=== PATIENT | male | born 2000 | race Asian ===

== ENCOUNTER 2022-08-19 15:35 | Inpatient (IN) ==
[2022-08-19] MEDS ORDERED: SODIUM CHLORIDE 0.9% 1000ML 1,000 ML IV ONE (16:04)
[2022-08-19 16:30] LABS: Albumin Globulin Ratio 1.8 (0.9-2); BUN Creatinine Ratio 10.8 (10-20); Bilirubin,Total 1.7 mg/dl (0.2-1.0); Calcium 9.3 mg/dl (8.6-10.3); Creatinine Clr Calc Pharmacy 154.6 ml/min; Est GFR (African American) 133.6 ml/min; Est GFR (Non-African American) 115.3 ml/min; Globulin 2.8 gm/dl (2.5-4.0); Potassium 3.5 mmol/L (3.5-5.1); Total Protein 7.8 gm/dl (6.0-8.3)
[2022-08-19] MEDS ORDERED: PHARMACY GLYCEMIC MGMT CONSULT PRN (16:43)
[2022-08-19] MEDS ORDERED: STAT IV Infusion **Titration per Protocol STA (16:43)
[2022-08-19] MEDS ORDERED: INSULIN REGULAR 250 UNITS in SODIUM CHLORIDE 0.9% 247.5 ML IV SCH (16:45)
[2022-08-19 16:50] LABS: Appearance Urine Clear (Clear); Bacteria Urine Automated Negative (Negative); Bilirubin Urine Negative (Negative); Blood Urine Negative (Negative); Color Urine Yellow; Glucose Urine UA 3+ (Negative); Ketones Urine 4+ (Negative); Leukocyte Esterase Urine Negative (Negative); Nitrite Urine Negative (Negative); Protein Urine 2+ (Negative); RBC Urine Automated 0-4 /hpf (0-4); Urobilinogen Urine Negative (Negative); pH Urine 5.5 (4.5-7.5)
[2022-08-19 16:53] LABS: Basophils # (auto) 0.04 K/uL (0-0.2); Basophils % (auto) 0.6 %; Eosinophils # (auto) 0.02 K/uL (0-0.50); Eosinophils % (auto) 0.3 %; Hematocrit (blood only) 48.5 % (42.0-52.0); Hemoglobin 17.5 g/dl (14.0-18.0); Immature Granulocytes # (auto) 0.03 K/uL (0.01-0.20); Immature Granulocytes % (auto) 0.5 %; Lymphocytes # (auto) 1.64 K/uL (1.2-3.4); Lymphocytes % (auto) 24.8 %; Mean Corpuscular Hemoglobin 30.1 pg (25.0-34.0); Mean Corpuscular Hgb Conc 36.1 g/dL (32.0-36.0); Mean Corpuscular Volume 83.5 fL (80.0-100.0); Mean Platelet Volume 12.1 fL (9.4-12.4); Monocytes # (auto) 0.58 K/uL (0.11-0.59); Monocytes % (auto) 8.8 %; Neutrophils # (auto) 4.31 K/uL (1.40-6.50); Platelet Count 221 K/uL (130-400); RDW Standard Deviation 35.9 fL (36.4-46.3); Red Blood Count 5.81 M/uL (4.70-6.10); White Blood Count 6.62 K/ul (4.8-10.8)
[2022-08-19] MEDS ORDERED: NSS + 20MEQ KCL 20 MEQ/1,000 ML BAG IV SCH (17:00)
[2022-08-19] MEDS ORDERED: POTASSIUM CHLORIDE 40 MEQ in SODIUM CHLORIDE 0.9% 1000ML 1,000 ML IV SCH (17:00)
[2022-08-19] MEDS ORDERED: LACTATED RINGER'S 1,000 ML IV ONE (17:04)
[2022-08-19] MEDS ORDERED: POTASSIUM CHLORIDE CRTAB 20 MEQ TABCR PO STA ×2 (17:13→22:54)
[2022-08-19 17:45] LABS: BUN Creatinine Ratio 10.6 (10-20); Calcium 8.5 mg/dl (8.6-10.3); Creatinine Clr Calc Pharmacy 169.2 ml/min; Est GFR (African American) 142.3 ml/min; Est GFR (Non-African American) 122.8 ml/min; Magnesium 1.8 mg/dl (1.7-2.4); Phosphorus 2.9 mg/dl (2.5-4.9); Potassium 3.5 mmol/L (3.5-5.1)
--- NOTE | 2022-08-19 18:42 | Emergency Department Note ---
History of Present Illness General Chief complaint: Hyperglycemia Stated complaint: REF BY DOC,BLOOD SUGAR TO HIGH Time Seen by Provider: 08/19/22 15:59 History of Present Illness Provider complaint: Hyperglycemia polyuria Onset (ago): week(s) 1 22-year-old male who is diabetic and supposed to be on insulin presents to the emergency department for high blood sugar and polyuria. Patient reports his symptoms have gone for last week. 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 Patient reports no abdominal pain. No nausea or vomiting. No headaches. Home Medications Medication Instructions Recorded Confirmed Type No Known Home Medications 08/19/22 08/19/22 History Allergies Allergy/AdvReac Type Severity Reaction Status Date / Time jacqueline Allergy Intermediate Rash and Unverified 08/19/22 17:50 itching jacqueline flavor Allergy Intermediate Rash and Unverified 08/19/22 17:50 itching Past Med/Surg History Medical History Diabetes No pertinent family history Surgical History No pertinent past surgical history Social History Smoking Status: Never smoker Preferred Language: Malay Feels Safe at Home: Yes Physical Exam Vital Signs Vital Signs - 24 hr 08/19/22 15:38 08/19/22 16:14 08/19/22 15:55 Temperature 36.5 C Temperature Source Temporal Artery Scan Pulse Rate 103 H 89 Pulse Rate [Right Apical] 88 Pulse Rate from SpO2 Sensor 91 H Respiratory Rate 18 16 13 Respiratory Effort / Characteristics Non-Labored Non-Labored Spontaneous Respiratory Depth Normal Normal Respiratory Pattern Regular Blood Pressure 161/103 H Blood Pressure [Left Arm] 124/80 Blood Pressure Mean 122 Blood Pressure Mean [Left Arm] 94 Pulse Oximetry 97 98 97 Oxygen Delivery Method Room Air Room Air Sepsis Recent Fever Within 48 Hours No Sepsis New/Unexplained Change in Mental Status No Sepsis Action Taken by Nursing No Action Required 08/19/22 18:08 Temperature Temperature Source Pulse Rate 87 Pulse Rate [Right Apical] Pulse Rate from SpO2 Sensor Respiratory Rate 19 Respiratory Effort / Characteristics Respiratory Depth Respiratory Pattern Blood Pressure 115/70 Blood Pressure [Left Arm] Blood Pressure Mean 85 Blood Pressure Mean [Left Arm] Pulse Oximetry 100 Oxygen Delivery Method Room Air Sepsis Recent Fever Within 48 Hours Sepsis New/Unexplained Change in Mental Status Sepsis Action Taken by Nursing Physical Exam GENERAL: She is oriented to person, place, and time. She appears well-developed and well-nourished. She does not appear distressed. HENT: Exam performed. -Head: Normocephalic and atraumatic. -Right Ear: External ear normal. No mastoid erythema -Left Ear: External ear normal. No mastoid erythema -Mouth/Throat: The oropharynx is clear and moist. No trismus in the jaw. No dental abscesses or uvula swelling. No oropharyngeal exudate or tonsillar abscesses. EYES: Conjunctivae and EOM are normal.Right eye exhibits no discharge. Left eye exhibits no discharge. No scleral icterus. NECK: Normal range of motion. Neck supple. No JVD present. No tracheal deviation and normal range of motion present. CV: Normal rate, regular rhythm, normal heart sounds and intact distal pulses. There is no peripheral edema. Palpable radial pulses bue. PULM/CHEST: Effort normal and breath sounds normal. No respiratory distress. No stridor. She has no wheezes. She has no rales. -Chest Wall: She exhibits no tenderness. ABD: The abdomen is soft. Bowel sounds are normal. She has no distension. No mass is present. There is no tenderness. There is no rebound, no guarding, no Akhtar's sign and no tenderness at McBurney's point. Rovsig negative MUSC/SKEL: Normal range of motion. There is no peripheral edema, tenderness or deformity. NEURO: Motor and sensation grossly intact. SKIN: Skin is warm and dry. She is not diaphoretic. PSYCH: She has a normal mood and affect. Behavior is normal. Judgment and thought content normal. Course Course 1559: The patient was evaluated in room C5. A complete history and physical exam was performed Cardiac monitoring: An order was placed for continuous cardiac monitoring. The monitor shows a rate of 90 with sinus rhythm interpreted by me 1705: Vital signs stable. Repeat physical exam showed no pain on palpation of the abdomen. There is mild transaminitis also with a AST of 71 ALT of 160 alkaline phosphatase 135 total bilirubin 1.7. Labs show hyperglycemia with an elevated anion gap. Patient will be started on insulin drip. 1 L normal saline was given and the patient was also be given 1 more order of 1 L normal saline with 40 mill equivalents of KCl ordered by pharmacy given his potassium of 3.5. Patient will be admitted to [facility] team Dr. Lo notified. Administered Medications Insulin Human Regular 250 (units/ Sodium Chloride) 250 mls @ 10 mls/hr IV .Q24H [facility]; Protocol Stop: 09/18/22 16:44 Last Admin: 08/19/22 17:59 Dose: 10 units/hr, 10 mls/hr Documented By: KRYSTIN Co-signed By: Potassium Chloride 40 meq/ (Sodium Chloride) 1,020 mls @ 125 mls/hr IV .Q8H10M DONA Stop: 09/18/22 16:59 Last Admin: 08/19/22 18:02 Dose: 125 mls/hr Documented By: KRYSTIN Discontinued Medications Sodium Chloride (Nss 1000ml) 1,000 mls @ 999 mls/hr IV .Q1H1M ONE Stop: 08/19/22 17:04 Last Infusion: 08/19/22 17:55 Dose: 0 mls/hr Documented By: Admin: 08/19/22 16:18 Dose: 999 mls/hr Documented By: KRYSTIN Lactated Ringer's (Lr) 1,000 mls @ 999 mls/hr IV .Q1H1M ONE Stop: 08/19/22 18:04 Last Infusion: 08/19/22 18:05 Dose: 0 mls/hr Documented By: Admin: 08/19/22 17:13 Dose: 999 mls/hr Documented By: CARA Potassium Chloride (Potassium Chloride Crtab 20 Meq Tabcr) 40 meq PO NOW STA Stop: 08/19/22 17:14 Last Admin: 08/19/22 17:39 Dose: 40 meq Documented By: CARA Critical Care Time Critical Care Time: Yes Total Critical Care Time: 42 I have personally spent greater than 42 minutes of critical care time in the direct management of this patient. This includes bedside care, interpretation of diagnostic studies, and testing, discussion with consultants, patient, and family members, and other required patient management activities. This 42 minutes is in excess of all separately billable procedures. Medical Decision Making Laboratory Data Attestation: I reviewed the patient's lab results. 08/19/22 15:42 08/19/22 17:06 Lab Results 08/19/22 08/19/22 08/19/22 Range/Units 15:42 15:42 16:22 WBC 6.62 (4.8-10.8) K/ul RBC 5.81 (4.70-6.10) M/uL Hgb 17.5 (14.0-18.0) g/dl Hct 48.5 (42.0-52.0) % MCV 83.5 (80.0-100.0) fL MCH 30.1 (25.0-34.0) pg MCHC 36.1 H (32.0-36.0) g/dL RDW Std Deviation 35.9 L (36.4-46.3) fL RDW Coeff of [place]te 12.0 (11.5-14.5) % Plt Count 221 (130-400) K/uL MPV 12.1 (9.4-12.4) fL Immature Gran % (Auto) 0.5 % Neut % (Auto) 65.0 % Lymph % (Auto) 24.8 % [place] % (Auto) 8.8 % Eos % (Auto) 0.3 % Baso % (Auto) 0.6 % Neut # (Auto) 4.31 (1.40-6.50) K/uL Lymph # (Auto) 1.64 (1.2-3.4) K/uL [place] # (Auto) 0.58 (0.11-0.59) K/uL Eos # (Auto) 0.02 (0-0.50) K/uL Baso # (Auto) 0.04 (0-0.2) K/uL Immature Gran # (Auto) 0.03 (0.01-0.20) K/uL VBG pH (7.36-7.41) Sodium 135 L (136-145) mmol/L Potassium 3.5 (3.5-5.1) mmol/L Chloride 100 (98-107) mmol/L Carbon Dioxide 17 L (21-32) mmol/L Anion Gap 18 H (3-11) BUN 10 (6-23) mg/dl Creatinine 0.93 (0.6-1.4) mg/dl Est Cr Clr Drug Dosing 154.6 ml/min Est GFR ( Amer) 133.6 ml/min Est GFR (Non-Af Amer) 115.3 ml/min BUN/Creatinine Ratio 10.8 (10-20) Glucose 308 H* (70-99(Fasting)) mg/dl POC Glucose 324 H* (70-99) mg/dl Calcium 9.3 (8.6-10.3) mg/dl Phosphorus (2.5-4.9) mg/dl Magnesium (1.7-2.4) mg/dl Total Bilirubin 1.7 H (0.2-1.0) mg/dl AST 71 H (13-39) U/L ALT 168 H (7-52) U/L Alkaline Phosphatase 135 H (34-104) U/L Total Protein 7.8 (6.0-8.3) gm/dl Albumin 5.0 (3.4-5.0) gm/dl Globulin 2.8 (2.5-4.0) gm/dl Albumin/Globulin Ratio 1.8 (0.9-2) Lipase (11-82) U/L Urine Color Urine Appearance (Clear) Urine pH (4.5-7.5) Ur Specific [place] (1.000-1.030) Urine Protein (Negative) Urine Glucose (UA) (Negative) Urine Ketones (Negative) Urine Blood (Negative) Urine Nitrite (Negative) Urine Bilirubin (Negative) Urine Urobilinogen (Negative) Ur Leukocyte Esterase (Negative) Urine WBC (Auto) (0-5) /hpf Urine RBC (Auto) (0-4) /hpf U Hyaline Cast (Auto) (0-5) /lpf U Epithel Cells (Auto) (0-5) /lpf Urine Bacteria (Auto) (Negative) SARS-CoV-2, RNA, NAAT (NEGATIVE) 08/19/22 08/19/22 08/19/22 Range/Units 16:27 17:06 17:06 WBC (4.8-10.8) K/ul RBC (4.70-6.10) M/uL Hgb (14.0-18.0) g/dl Hct (42.0-52.0) % MCV (80.0-100.0) fL MCH (25.0-34.0) pg MCHC (32.0-36.0) g/dL RDW Std Deviation (36.4-46.3) fL RDW Coeff of [place] (11.5-14.5) % Plt Count (130-400) K/uL MPV (9.4-12.4) fL Immature Gran % (Auto) % Neut % (Auto) % Lymph % (Auto) % [place] % (Auto) % Eos % (Auto) % Baso % (Auto) % Neut # (Auto) (1.40-6.50) K/uL Lymph # (Auto) (1.2-3.4) K/uL [place] # (Auto) (0.11-0.59) K/uL Eos # (Auto) (0-0.50) K/uL Baso # (Auto) (0-0.2) K/uL Immature Gran # (Auto) (0.01-0.20) K/uL VBG pH 7.29 L (7.36-7.41) Sodium 136 (136-145) mmol/L Potassium 3.5 (3.5-5.1) mmol/L Chloride 103 (98-107) mmol/L Carbon Dioxide 18 L (21-32) mmol/L Anion Gap 15 H (3-11) BUN 9 (6-23) mg/dl Creatinine 0.85 (0.6-1.4) mg/dl Est Cr Clr Drug Dosing 169.2 ml/min Est GFR ( Amer) 142.3 ml/min Est GFR (Non-Af Amer) 122.8 ml/min BUN/Creatinine Ratio 10.6 (10-20) Glucose 278 H (70-99(Fasting)) mg/dl POC Glucose (70-99) mg/dl Calcium 8.5 L (8.6-10.3) mg/dl Phosphorus 2.9 (2.5-4.9) mg/dl Magnesium 1.8 (1.7-2.4) mg/dl Total Bilirubin (0.2-1.0) mg/dl AST (13-39) U/L ALT (7-52) U/L Alkaline Phosphatase (34-104) U/L Total Protein (6.0-8.3) gm/dl Albumin (3.4-5.0) gm/dl Globulin (2.5-4.0) gm/dl Albumin/Globulin Ratio (0.9-2) Lipase 12 (11-82) U/L Urine Color Yellow Urine Appearance Clear (Clear) Urine pH 5.5 (4.5-7.5) Ur Specific [place] 1.040 H (1.000-1.030) Urine Protein 2+ H (Negative) Urine Glucose (UA) 3+ H (Negative) Urine Ketones 4+ H (Negative) Urine Blood Negative (Negative) Urine Nitrite Negative (Negative) Urine Bilirubin Negative (Negative) Urine Urobilinogen Negative (Negative) Ur Leukocyte Esterase Negative (Negative) Urine WBC (Auto) 1-5 (0-5) /hpf Urine RBC (Auto) 0-4 (0-4) /hpf U Hyaline Cast (Auto) 5-10 H (0-5) /lpf U Epithel Cells (Auto) 10-20 H (0-5) /lpf Urine Bacteria (Auto) Negative (Negative) SARS-CoV-2, RNA, NAAT (NEGATIVE) 08/19/22 08/19/22 Range/Units 17:25 17:59 WBC (4.8-10.8) K/ul RBC (4.70-6.10) M/uL Hgb (14.0-18.0) g/dl Hct (42.0-52.0) % MCV (80.0-100.0) fL MCH (25.0-34.0) pg MCHC (32.0-36.0) g/dL RDW Std Deviation (36.4-46.3) fL RDW Coeff of [place] (11.5-14.5) % Plt Count (130-400) K/uL MPV (9.4-12.4) fL Immature Gran % (Auto) % Neut % (Auto) % Lymph % (Auto) % [place] % (Auto) % Eos % (Auto) % Baso % (Auto) % Neut # (Auto) (1.40-6.50) K/uL Lymph # (Auto) (1.2-3.4) K/uL [place] # (Auto) (0.11-0.59) K/uL Eos # (Auto) (0-0.50) K/uL Baso # (Auto) (0-0.2) K/uL Immature Gran # (Auto) (0.01-0.20) K/uL VBG pH (7.36-7.41) Sodium (136-145) mmol/L Potassium (3.5-5.1) mmol/L Chloride (98-107) mmol/L Carbon Dioxide (21-32) mmol/L Anion Gap (3-11) BUN (6-23) mg/dl Creatinine (0.6-1.4) mg/dl Est Cr Clr Drug Dosing ml/min Est GFR ( Amer) ml/min Est GFR (Non-Af Amer) ml/min BUN/Creatinine Ratio (10-20) Glucose (70-99(Fasting)) mg/dl POC Glucose 249 H (70-99) mg/dl Calcium (8.6-10.3) mg/dl Phosphorus (2.5-4.9) mg/dl Magnesium (1.7-2.4) mg/dl Total Bilirubin (0.2-1.0) mg/dl AST (13-39) U/L ALT (7-52) U/L Alkaline Phosphatase (34-104) U/L Total Protein (6.0-8.3) gm/dl Albumin (3.4-5.0) gm/dl Globulin (2.5-4.0) gm/dl Albumin/Globulin Ratio (0.9-2) Lipase (11-82) U/L Urine Color Urine Appearance (Clear) Urine pH (4.5-7.5) Ur Specific [place] (1.000-1.030) Urine Protein (Negative) Urine Glucose (UA) (Negative) Urine Ketones (Negative) Urine Blood (Negative) Urine Nitrite (Negative) Urine Bilirubin (Negative) Urine Urobilinogen (Negative) Ur Leukocyte Esterase (Negative) Urine WBC (Auto) (0-5) /hpf Urine RBC (Auto) (0-4) /hpf U Hyaline Cast (Auto) (0-5) /lpf U Epithel Cells (Auto) (0-5) /lpf Urine Bacteria (Auto) (Negative) SARS-CoV-2, RNA, NAAT NEGATIVE (NEGATIVE) [facility] Narrative 1559: The patient was evaluated in room C5. A complete history and physical exam was performed Cardiac monitoring: An order was placed for continuous cardiac monitoring. The monitor shows a rate of 90 with sinus rhythm interpreted by me 1705: Vital signs stable. Repeat physical exam showed no pain on palpation of the abdomen. There is mild transaminitis also with a AST of 71 ALT of 160 alkaline phosphatase 135 total bilirubin 1.7. Labs show hyperglycemia with an elevated anion gap. Patient will be started on insulin drip. 1 L normal saline was given and the patient was also be given 1 more order of 1 L normal saline with 40 mill equivalents of KCl ordered by pharmacy given his potassium of 3.5. Patient will be admitted to the [facility] team Dr. Lo notified. Impression & Plan DKA (diabetic ketoacidosis), Transaminitis Discharge Plan Visit Data Chief Complaint: Hyperglycemia Stated Complaint: REF BY DOC,BLOOD SUGAR TO HIGH ED Provider: Ede Springer Discharge Problem: DKA (diabetic ketoacidosis), Transaminitis Patient Disposition: Admitted As Inpatient Forms Stand Alone Forms: My [facility] Prescriptions Prescriptions: No Action No Known Home Medications Referrals Referrals: [facility] [Primary Care Provider] -
--- NOTE | 2022-08-19 19:02 | History & Physical Report ---
Date of Service August 19, 2022 Assessment & Plan (1) DKA (diabetic ketoacidosis): Plan: Suspect just from untreated diabetes. No acute infection suspected from history. Associated polyuria and polydipsia Bicarb 17, Anion gap 18, ketones in urine, venous ph on subsequent set of labs 7.29 Additional LR 1L bolus given K 3.5 - currently receiving KCl Switch fluids to Half NSS + KCl 20 meq @ 150ml/hr once on PCU Switch fluids to D5W + half NSS + KCl @ 150ml/hr once glucose < 200 q4h BMP, venous ph, magnesium, phosphorus Can be transitioned to SQ insulin and diet ordered once anion gap closes (2) Transaminitis: Plan: No abdominal pain. No prior lab values. US liver ordered - given lack of pain suspect most likely underlying AYALA. Hepatitis panel ordered with AM labs (3) Diabetes: Plan: Hemoglobin A1C with AM labs. Plan VTE Prophylaxis - low risk Diet - NPO pending anion gap closed Disposition - admit to PCU Admission and Anticipated Discharge Date Admission Date: August 19, 2022 History of Present Illness Chief Complaint: Polyuria and polydipsia Primary Care Provider: [facility] Marisabel Sotelo is a 22 year old male who presents to the ER with increased urination and thirst over the last week. He notes a diarrhea episode related to iced tea two days ago but no currently and no abdominal pain. No other symptoms of infection. He reports prior diagnosis of diabetes for which he was previously treated with insulin. He discontinued this himself last September moving from [place] and felt fine therefore did not follow up with a doctor and just tried to make dietary changes. LFTs were elevated in the ER. He denies any abdominal p ain or known problems with his liver. Allergies Allergy/AdvReac Type Severity Reaction Status Date / Time jacqueline Allergy Intermediate Rash and Unverified 08/19/22 17:50 itching jacqueline flavor Allergy Intermediate Rash and Unverified 08/19/22 17:50 itching Home Medications Medication Instructions Recorded Confirmed Type No Known Home Medications 08/19/22 08/19/22 History Past Med/Surg History Medical History Diabetes No pertinent family history Surgical History No pertinent past surgical history Social History Smoking Status: Never smoker Do You Dip or Chew Tobacco: No; Hx Alcohol Use: No Hx Substance Use: No Preferred Language: Uzbek Communication Ability: Effective Special Education Superintendent Required: No Beliefs That Will Affect Care: None Current Living Situation: Alone Current Living Situation Comment: apartment Other Information That Helps Us Care for You: No Feels Safe at Home: Yes Safety Concerns: Feels Safe At This Time Assistive Devices: None Review of Systems Review of Systems: All systems reviewed & are unremarkable except as noted in HPI & below Physical Exam Constitutional: WD/WN, vitals as above Eyes: + anicteric sclerae; normal pupil size ENMT: external ear and nose normal, oropharynx normal Respiratory: normal respiratory effort, lungs clear to auscultation Cardiovascular: RRR, no murmur, no edema Gastrointestinal (Abdomen): normal bowel sounds, soft, nontender, no hepatosplenomegaly Musculoskeletal: no cyanosis or clubbing, extremities motor strength 5/5 Skin: no rashes, warm and dry Neurologic: moves all extremities and awake; not confused Psychiatric: A+Ox3, euthymic affect Results & Data Results & Data Vital Signs (Past 12 Hours) Vital Signs Temp Pulse Pulse Resp BP BP Pulse Ox 08/19/22 18:08 87 19 115/70 100 08/19/22 15:55 89 13 97 08/19/22 16:14 88 16 124/80 98 08/19/22 15:38 36.5 C 103 H 18 161/103 H 97 O2 Del Method 08/19/22 18:08 Room Air 08/19/22 15:55 08/19/22 16:14 Room Air 08/19/22 15:38 Room Air Laboratory Results Abnormal lab results 08/19/22 08/19/22 08/19/22 Range/Units 15:42 15:42 16:22 MCHC 36.1 H (32.0-36.0) g/dL RDW Std Deviation 35.9 L (36.4-46.3) fL VBG pH (7.36-7.41) Sodium 135 L (136-145) mmol/L Carbon Dioxide 17 L (21-32) mmol/L Anion Gap 18 H (3-11) Glucose 308 H* (70-99(Fasting)) mg/dl POC Glucose 324 H* (70-99) mg/dl Calcium (8.6-10.3) mg/dl Total Bilirubin 1.7 H (0.2-1.0) mg/dl AST 71 H (13-39) U/L ALT 168 H (7-52) U/L Alkaline Phosphatase 135 H (34-104) U/L Ur Specific [place] (1.000-1.030) Urine Protein (Negative) Urine Glucose (UA) (Negative) Urine Ketones (Negative) U Hyaline Cast (Auto) (0-5) /lpf U Epithel Cells (Auto) (0-5) /lpf 08/19/22 08/19/22 08/19/22 Range/Units 16:27 17:06 17:06 MCHC (32.0-36.0) g/dL RDW Std Deviation (36.4-46.3) fL VBG pH 7.29 L (7.36-7.41) Sodium (136-145) mmol/L Carbon Dioxide 18 L (21-32) mmol/L Anion Gap 15 H (3-11) Glucose 278 H (70-99(Fasting)) mg/dl POC Glucose (70-99) mg/dl Calcium 8.5 L (8.6-10.3) mg/dl Total Bilirubin (0.2-1.0) mg/dl AST (13-39) U/L ALT (7-52) U/L Alkaline Phosphatase (34-104) U/L Ur Specific [place] 1.040 H (1.000-1.030) Urine Protein 2+ H (Negative) Urine Glucose (UA) 3+ H (Negative) Urine Ketones 4+ H (Negative) U Hyaline Cast (Auto) 5-10 H (0-5) /lpf U Epithel Cells (Auto) 10-20 H (0-5) /lpf 08/19/22 Range/Units 17:59 MCHC (32.0-36.0) g/dL RDW Std Deviation (36.4-46.3) fL VBG pH (7.36-7.41) Sodium (136-145) mmol/L Carbon Dioxide (21-32) mmol/L Anion Gap (3-11) Glucose (70-99(Fasting)) mg/dl POC Glucose 249 H (70-99) mg/dl Calcium (8.6-10.3) mg/dl Total Bilirubin (0.2-1.0) mg/dl AST (13-39) U/L ALT (7-52) U/L Alkaline Phosphatase (34-104) U/L Ur Specific [place] (1.000-1.030) Urine Protein (Negative) Urine Glucose (UA) (Negative) Urine Ketones (Negative) U Hyaline Cast (Auto) (0-5) /lpf U Epithel Cells (Auto) (0-5) /lpf Medications Administered ER Medications Given: NSS 1L bolus Insulin DKA protocol Code Status & VTE Plan Code Status Full VTE Prophylaxis Plan VTE Prophylaxis will be ordered: No PG Care Time/CCT Total # of Minutes Spent Total Time Spent with Patient: Total time spent is greater than 50% in coordination of care (as documented) at patient's floor/unit and/or counseling patient: Coding Level of Care Code 59611 INT INP/OBS CARE 3/75MIN Diagnoses DKA (diabetic ketoacidosis) E11.10 Transaminitis R74.01 Diabetes E11.9
[2022-08-19] MEDS: D5W AND 1/2NSS + 20MEQ KCL 20 MEQ/1,000 ML BAG IV SCH (19:29)
[2022-08-19] MEDS ORDERED: INSULIN ASPART PER UNIT CHARGE SC SCH (21:00)
[2022-08-19] MEDS ORDERED: ACETAMINOPHEN 325 MG TAB PO PRN (21:03)
[2022-08-19 22:32] LABS: BUN Creatinine Ratio 8.4 (10-20); Calcium 8.4 mg/dl (8.6-10.3); Creatinine Clr Calc Pharmacy 174.2 ml/min; Est GFR (African American) 143.7 ml/min; Magnesium 1.7 mg/dl (1.7-2.4); Phosphorus 1.9 mg/dl (2.5-4.9); Potassium 3.4 mmol/L (3.5-5.1)
[2022-08-19] MEDS ORDERED: POTASSIUM PHOS 3 MMOL/1 ML INFUSION IV STA (22:55)
[2022-08-19] MEDS ORDERED: POTASSIUM PHOSPHATE 9 MMOL in SODIUM CHLORIDE 0.9% 250 ML IV ONE (23:00)
--- NOTE | 2022-08-19 23:06 | Ultrasound Report ---
Exam(s): US LIVER EXAM: US Abdomen Limited CLINICAL HISTORY: Reason for exam: elevated LFTs. TECHNIQUE: Real-time ultrasound of the abdomen with image documentation. COMPARISON: No relevant prior studies available. FINDINGS: Liver: There is fatty infiltration of the liver. No focal liver lesion is seen. The liver measures 15.1 cm. The portal vein is patent with normal hepatopetal flow. Gallbladder: The gallbladder is normally distended but no visible stones, wall thickening, or surrounding fluid. Sonographic Akhtar sign is negative. Common bile duct: The common bile duct is nondilated measuring 2 mm. Pancreas: The pancreas is most obscured. Kidneys: The right kidney measures 11 cm. IMPRESSION: Fatty infiltration of the liver. Normal gallbladder. No acute process is seen. Electronically signed by: Lonnie Albert MD 08/19/22 23:05 PM
[2022-08-20] MEDS ORDERED: LANTUS PER UNIT CHARGE SC ONE (00:30)
[2022-08-20 01:00] LABS: Anion Gap 11 (3-11); BUN Creatinine Ratio 8.2 (10-20); Blood Urea Nitrogen 6 mg/dl (6-23); Carbon Dioxide 19 mmol/L (21-32); Chloride 107 mmol/L (98-107); Creatinine Clr Calc Pharmacy 198.1 ml/min; Est GFR (African American) > 150.0 ml/min; Est GFR (Non-African American) 130.7 ml/min; Glucose 179 mg/dl (70-99(Fasting)); Magnesium 1.7 mg/dl (1.7-2.4); Phosphorus 3.1 mg/dl (2.5-4.9); Potassium 3.8 mmol/L (3.5-5.1); Sodium 137 mmol/L (136-145)
[2022-08-20] MEDS ORDERED: [UNRECOGNIZED DRUG - REMARK] ONE (02:30)
[2022-08-20] MEDS: D5W AND 1/2NSS + 20MEQ KCL 20 MEQ/1,000 ML BAG IV SCH ×2 (02:44→09:38)
[2022-08-20] MEDS: INSULIN ASPART PER UNIT CHARGE SC SCH ×5 (04:14→21:13)
[2022-08-20 06:26] LABS: Alanine Aminotransferase 119 U/L (7-52); Albumin Globulin Ratio 1.9 (0.9-2); Albumin Level 3.7 gm/dl (3.4-5.0); Alkaline Phosphatase 83 U/L (34-104); Anion Gap 11 (3-11); Aspartate Aminotransferase 53 U/L (13-39); BUN Creatinine Ratio 7.1 (10-20); Bilirubin,Total 1.5 mg/dl (0.2-1.0); Blood Urea Nitrogen 5 mg/dl (6-23); Calcium 8.1 mg/dl (8.6-10.3); Carbon Dioxide 18 mmol/L (21-32); Chloride 107 mmol/L (98-107); Creatinine Clr Calc Pharmacy 207.7 ml/min; Est GFR (African American) > 150.0 ml/min; Glucose 262 mg/dl (70-99(Fasting)); Magnesium 1.7 mg/dl (1.7-2.4); Phosphorus 2.8 mg/dl (2.5-4.9); Potassium 3.8 mmol/L (3.5-5.1); Sodium 136 mmol/L (136-145); Total Protein 5.7 gm/dl (6.0-8.3)
[2022-08-20 07:09] LABS: Estimated Average Glucose 255 mg/dl; Hemoglobin A1C 10.5 % (4.5-5.6)
[2022-08-20 09:17] LABS: Anion Gap 9 (3-11); BUN Creatinine Ratio 7.5 (10-20); Blood Urea Nitrogen 5 mg/dl (6-23); Calcium 8.3 mg/dl (8.6-10.3); Carbon Dioxide 19 mmol/L (21-32); Chloride 107 mmol/L (98-107); Est GFR (African American) > 150.0 ml/min; Est GFR (Non-African American) 135.4 ml/min; Glucose 276 mg/dl (70-99(Fasting)); Magnesium 1.7 mg/dl (1.7-2.4); Phosphorus 2.5 mg/dl (2.5-4.9); Potassium 3.6 mmol/L (3.5-5.1); Sodium 135 mmol/L (136-145)
--- NOTE | 2022-08-20 11:15 | Pharmacy Report ---
Pharmacy Glycemic Short Note 2 - Date of Service August 20, 2022 - Glycemic Short BSG Results (Last 24 hours): 08/19/22 08/19/22 08/19/22 15:42 16:22 17:06 Glucose 308 H* 278 H POC Glucose 324 H* 08/19/22 08/19/22 08/19/22 17:59 19:03 20:02 Glucose POC Glucose 249 H 201 H 188 H 08/19/22 08/19/22 08/19/22 21:30 21:51 22:13 Glucose 148 H POC Glucose 123 H 109 H 08/19/22 08/20/22 08/20/22 23:24 00:22 00:25 Glucose 179 H POC Glucose 127 H 152 H 08/20/22 08/20/22 08/20/22 01:24 02:21 04:02 Glucose POC Glucose 171 H 186 H 210 H 08/20/22 08/20/22 08/20/22 05:39 07:24 08:42 Glucose 262 H 276 H POC Glucose 273 H OUTPATIENT ANTIDIABETIC REGIMEN: * None HbA1c = 10.5% ASSESSMENT: * 22 y/o M admitted for mild DKA last night due to untreated diabetes. * He was started on an insulin drip and fluids last night. Basal insulin SQ 20 units (based on stress of 2) was given around midnight last night. * Insulin drip rate was titrated down and turned off early this morning. Anion gap closed. * IV fluids with dextrose was ongoing at 150 ml/hr. After speaking to hospitalist, this was discontinued this morning. * Patient has been NPO since admission but is now ordered a diet. * Fasting BSG was elevated at 273 mg/dl. Pre-lunch BSG = 221 mg/dl. Added additional 5 units of basal insulin at noon and tightened Novolog correction. * Basal insulin dose scale ordered for tonight with 30 units to be given if BSG above 180 mg/dl PLAN FOR INPATIENT GLYCEMIC CONTROL: * Basal insulin * Lantus 20 units SQ around midnight yesterday and 5 units at noon today * Lantus 20-30 units scale based on BSG at HS * Bolus insulin * NovoLog per scale ACHS or Q4hrs while NPO * Goal Range: Low 110 mg/dL - High 140 mg/dL * Correction Factor: 15 mg/dL/unit * Nutritional / Prandial insulin per carb ratio of 1 unit per 7 grams CHO consumed
[2022-08-20] MEDS ORDERED: LANTUS PER UNIT CHARGE SC SCH ×2 (11:45→21:00)
[2022-08-20 13:25] LABS: BUN Creatinine Ratio 5.3 (10-20); Calcium 8.6 mg/dl (8.6-10.3); Creatinine Clr Calc Pharmacy 191.3 ml/min; Est GFR (Non-African American) 128.6 ml/min; Magnesium 1.8 mg/dl (1.7-2.4); Phosphorus 2.7 mg/dl (2.5-4.9); Potassium 3.9 mmol/L (3.5-5.1)
[2022-08-20] MEDS ORDERED: CARBOHYDRATES FOR HYPOGLYCEMIA PO PRN (14:30)
[2022-08-20] MEDS ORDERED: GLUCOSE 10 TAB/TUBE PO PRN (14:30)
[2022-08-20] MEDS ORDERED: DEXTROSE 50% 50 ML SYRINGE IV PRN (14:30)
[2022-08-20] MEDS ORDERED: GLUCAGON FOR INJ 1 MG VIAL IM PRN (14:30)
[2022-08-20] MEDS ORDERED: GLUCOSE 40% GEL 15 GM TUBE PO PRN (14:30)
--- NOTE | 2022-08-20 22:58 | Hospitalist Progress Note ---
Date of Service August 20, 2022 Assessment & Plan (1) DKA (diabetic ketoacidosis): Plan: Suspect just from untreated diabetes. No acute infection suspected from history. Associated polyuria and polydipsia Bicarb 17, Anion gap 18, ketones in urine, venous ph on subsequent set of labs 7.29 Additional LR 1L bolus given K 3.5 - currently receiving KCl anion gaps is now closed, transitioned to SQ insulin and diet ordered will likely order trulicity and metformin to help with weight loss. (2) Transaminitis: Plan: No abdominal pain. No prior lab values. US liver ordered - given lack of pain suspect most likely underlying AYALA. Hepatitis panel ordered; slightly better. (3) Diabetes: Plan: Hemoglobin A1C : 10 Plan VTE Prophylaxis - low risk Admission and Anticipated Discharge Date Admission Date: August 19, 2022 Subjective 22 yo male reports feeling well. He has no new complaints. Review of Systems Review of Systems: All systems reviewed & are unremarkable except as noted in HPI & below Physical Exam Constitutional: WD/WN, vitals as above Eyes: + anicteric sclerae; normal pupil size ENMT: external ear and nose normal, oropharynx normal Respiratory: normal respiratory effort, lungs clear to auscultation Cardiovascular: RRR, no murmur, no edema Gastrointestinal (Abdomen): normal bowel sounds, soft, nontender, no hepatosplenomegaly Musculoskeletal: no cyanosis or clubbing, extremities motor strength 5/5 Skin: no rashes, warm and dry Neurologic: moves all extremities and awake; not confused Psychiatric: A+Ox3, euthymic affect Results & Data Results & Data Vital Signs (Past 12 Hours) Vital Signs Temp Pulse Pulse Pulse Resp BP Pulse Ox 08/20/22 21:03 08/20/22 19:52 36.7 C 90 16 134/85 99 08/20/22 18:29 68 08/20/22 17:42 36.9 C 104 H 17 130/84 100 08/20/22 11:21 36.6 C 77 18 123/76 98 Pulse Ox O2 Del Method O2 Del Method 08/20/22 21:03 99 Room Air 08/20/22 19:52 Room Air 08/20/22 18:29 08/20/22 17:42 Room Air 08/20/22 11:21 Room Air PG Care Time/CCT Total # of Minutes Spent Total Time Spent with Patient: Total time spent is greater than 50% in coordination of care (as documented) at patient's floor/unit and/or counseling patient: Coding Level of Care Code 34630 SUB INP/OBS CARE MIN Diagnoses DKA (diabetic ketoacidosis) E11.10 Transaminitis R74.01 Diabetes E11.9
[2022-08-21] MEDS: INSULIN ASPART PER UNIT CHARGE SC SCH ×6 (00:14→17:09)
[2022-08-21 06:43] LABS: Hematocrit (blood only) 43.1 % (42.0-52.0); Hemoglobin 15.3 g/dl (14.0-18.0); Mean Corpuscular Hemoglobin 30.2 pg (25.0-34.0); Mean Corpuscular Hgb Conc 35.5 g/dL (32.0-36.0); Mean Corpuscular Volume 85.2 fL (80.0-100.0); Mean Platelet Volume 11.7 fL (9.4-12.4); Platelet Count 212 K/uL (130-400); RDW Coefficient of Variation 12.1 % (11.5-14.5); RDW Standard Deviation 36.9 fL (36.4-46.3); Red Blood Count 5.06 M/uL (4.70-6.10)
[2022-08-21 07:16] LABS: Alanine Aminotransferase 120 U/L (7-52); Albumin Globulin Ratio 1.8 (0.9-2); Albumin Level 3.9 gm/dl (3.4-5.0); Alkaline Phosphatase 82 U/L (34-104); Anion Gap 10 (3-11); Aspartate Aminotransferase 51 U/L (13-39); BUN Creatinine Ratio 8.1 (10-20); Bilirubin,Total 1.4 mg/dl (0.2-1.0); Blood Urea Nitrogen 5 mg/dl (6-23); Carbon Dioxide 23 mmol/L (21-32); Chloride 105 mmol/L (98-107); Creatinine Clr Calc Pharmacy 233.9 ml/min; Est GFR (African American) > 150.0 ml/min; Est GFR (Non-African American) 139.8 ml/min; Globulin 2.2 gm/dl (2.5-4.0); Glucose 160 mg/dl (70-99(Fasting)); Potassium 3.1 mmol/L (3.5-5.1); Sodium 138 mmol/L (136-145); Total Protein 6.1 gm/dl (6.0-8.3)
[2022-08-21] MEDS ORDERED: LANTUS PER UNIT CHARGE SC SCH ×2 (09:00→21:00)
[2022-08-21 10:43] LABS: HBSAG NON-REACTIVE (NON-REACTIVE); Hepatitis A Antibody IgM NON-REACTIVE (NON-REACTIVE); Hepatitis B Core Antibody IgM NON-REACTIVE (NON-REACTIVE)
[2022-08-21] MEDS ORDERED: POTASSIUM CHLORIDE CRTAB 20 MEQ TABCR PO STA (12:50)
--- NOTE | 2022-08-21 16:01 | Discharge Summary ---
Date of Service August 21, 2022 Admission HPI Per Admitting Provider Marisabel Sotelo is a 22 year old male who presents to the ER with increased urination and thirst over the last week. He notes a diarrhea episode related to iced tea two days ago but no currently and no abdominal pain. No other symptoms of infection. He reports prior diagnosis of diabetes for which he was previously treated with insulin. He discontinued this himself last September moving from [place] and felt fine therefore did not follow up with a doctor and just tried to make dietary changes. LFTs were elevated in the ER. He denies any abdominal pain or known problems with his liver. Principal Diagnosis DKA Discharge Exam Constitutional WD/WN, vitals as above Eyes + anicteric sclerae; normal pupil size ENMT external ear and nose normal, oropharynx normal Respiratory normal respiratory effort, lungs clear to auscultation Cardiovascular RRR, no murmur, no edema Gastrointestinal (Abdomen) normal bowel sounds, soft, nontender, no hepatosplenomegaly Musculoskeletal no cyanosis or clubbing, extremities motor strength 5/5 Skin no rashes, warm and dry Neurologic moves all extremities and awake; not confused Psychiatric A+Ox3, euthymic affect Discharge Data Allergies Allergy/AdvReac Type Severity Reaction Status Date / Time jacqueline Allergy Intermediate Rash and Unverified 08/19/22 17:50 itching jacqueline flavor Allergy Intermediate Rash and Unverified 08/19/22 17:50 itching Consultations 08/19/22 17:03 ED Decision to Admit Stat Ordered Studies 08/19/22 17:03 US liver Stat Diabetes Follow up Diabetes Follow-up Needed for HgbA1c >9% Hospital Course (1) DKA (diabetic ketoacidosis): Suspect just from untreated diabetes. Patient reports being diagnosed over 2 years ago, but has not been treated for about 1 year. No acute infection suspected from history. Associated polyuria and polydipsia Bicarb 17, Anion gap 18, ketones in urine, venous ph on subsequent set of labs 7.29 Additional LR 1L bolus given K 3.5 - currently receiving KCl His labs improved with aggressive IVF and insulin drip. anion gaps is now closed transitioned to SQ insulin and diet ordered Will discharge patient on trulicity and metformin to help with weight loss. This will help with his likey AYALA. Will have patient get established with [facility], perhaps with Dr. Vail. Patient reports he has test strips at home and glucometer. Patient also has followup with jacqu[facility] fixer (2) Transaminitis: No abdominal pain. No prior lab values. US liver ordered - given lack of pain suspect most likely underlying AYALA. Hepatitis panel ordered; slightly better. (3) Diabetes: Hemoglobin A1C : 10 Plan VTE Prophylaxis - low risk Total Time Total Time Spent Total Time Spent (In Minutes): 35 Discharge Plan Discharge Items Patient Disposition: Home - Self-Care Reason For Visit: DIABETIC KETOACIDOSIS Discharge Diagnosis: diabetes Activity: Resume your previous activity Non-emergency contact: Primary Care Provider Call non-emergency contact if: you have any medication questions Follow-up/Referrals: Tessa Vail [Physician] - (we will contact you tuesday am with your follow up date/time) [facility] [Primary Care Provider] - Diet: Carb Consistent or DM2 Addtl Attending Provider Instructions: Good afternoon Mr. Sotelo, You will be discharged on 3 medications for your diabetes. Trulicity (please discuss with your PCP regarding warnings on this medicine) Metformin Insulin The first 2 will help with weight loss. Your liver is showing signs of AYALA, non-alcoholic steatohepatitis. Will recommend you continue to exercise and diet. Will recommend you monitor your blood sugar in the morning. Please keep a diary, please followup with a Primary care doctor in 1-[address] Vail at [facility] Here's a patient education guide for a diabetic diet for individuals with type 2 diabetes: 1. Understand the importance of a diabetic diet: A diabetic diet plays a crucial role in managing blood sugar levels and overall health for individuals with type 2 diabetes. It focuses on balanced eating and portion control to help maintain stable blood sugar levels. 2. Choose nutrient-dense foods: Opt for foods that are rich in nutrients and low in added sugars, unhealthy fats, and refined carbohydrates. Include a variety of fruits, vegetables, whole grains, lean proteins, and healthy fats in your meals. 3. Carbohydrate counting: Learn about carbohydrates and how they affect blood sugar levels. Carbohydrates have the most significant impact on blood sugar levels, so it's important to monitor their intake. Work with a registered dietitian to learn carbohydrate counting techniques. 4. Portion control: Be mindful of portion sizes to avoid overeating. Use measuring cups, a food scale, or visual cues to help estimate appropriate portions. Eating smaller, frequent meals throughout the day can also help stabilize blood sugar levels. 5. Focus on fiber: Incorporate high-fiber foods like whole grains, legumes, fruits, and vegetables into your diet. Fiber aids in digestion, helps control blood sugar levels, and promotes a feeling of fullness. 6. Limit added sugars: Avoid or minimize foods and beverages with added sugars such as soda, sweets, desserts, and sugary snacks. Be cautious of hidden sugars in processed foods by reading labels and choosing products with no or low added sugars. 7. Healthy fats: Include healthy fats in moderation, such as avocados, nuts, seeds, and olive oil. These fats can help with satiety and promote heart health. 8. Regular mealtimes: Establish regular meal and snack times to maintain consistent blood sugar levels throughout the day. Avoid skipping meals, as it can lead to blood sugar imbalances. 9. Stay hydrated: Drink plenty of water throughout the day to stay hydrated and support overall health. Limit sugary beverages and opt for water, herbal tea, or unsweetened beverages instead. 10. Monitor blood sugar levels: Check your blood sugar levels regularly as directed by your healthcare provider. This will help you understand how different foods affect your levels and guide your dietary choices. Remember, it's crucial to work with a registered dietitian or healthcare provider to develop an individualized meal plan that meets your specific needs. They can provide personalized guidance, assist with meal planning, and answer any questions you may have about your diabetic diet. Pending Studies at Discharge: No Stand-Alone Forms: My [facility], Smoking Cessation Medications and DC Order Prescriptions: New metformin 500 mg tablet extended release 24 hr See Rx Instructions .ROUTE .COMPLEX Qty: 60 0RF Rx Instructions: Take 1 tablet once a day by mouth after breakfast in 7 days, increase to 1 tablet twice a day after meals Trulicity 0.75 mg/0.5 mL pen injector 0.75 mg subcut .weekly Qty: 2 0RF Rx Instructions: On tuesday insulin glargine [Lantus U-100 Insulin] 100 unit/mL solution 30 unit subcut HS Qty: 10 0RF (DME) pen needle, diabetic 32 gauge x 5/16" needle See Rx Instructions .Route Qty: 100 0RF Rx Instructions: As directed Discharge Orders: Discharge Order (Routine); Ordered 08/21/22 Ordered By: Sixto Gonzalez Admission Data Admit Date/Time: 08/19/22 18:35 Attending Provider: Sixto Gonzalez Admit Provider: Kenneth Lo Primary Care Provider: [facility] Other Providers: Kenneth Lo Other Interventions: Discharge Summary Assessment (RN) Last Done: 08/21/22 17:32 Coding Level of Care Code 05369 INP/OBS DISCH >30 MIN Diagnoses DKA (diabetic ketoacidosis) E11.10 Transaminitis R74.01 Diabetes E11.9
== END 2022-08-21 18:19 | disposition home or self-care (01) | DRG 639 ==
LOC: ED 15:35 → 2S 18:35 → SUATTDRO 18:35 → 2S 20:31
DX: R74.01 Elevation of levels of liver transaminase levels; E11.10 Type 2 diabetes mellitus with ketoacidosis without coma; Z91.148 Patient's other noncompliance with medication regimen for other reason